=== PATIENT | female | born 1960 | race African-American/Black ===

== ENCOUNTER 2021-08-06 04:18 | Inpatient (IN) | payer OTHER ==
[2021-08-06] MEDS ORDERED: methylPREDNISolone NA SUCC 125 MG/2 ML VIAL IVPUSH ONE (04:19)
[2021-08-06] MEDS ORDERED: methylPREDNISolone NA SUCC 125 MG/2 ML VIAL ONE (04:41)
[2021-08-06] MEDS ORDERED: ALBUTEROL SO4 2.5/IPRATROPIUM 0.5 INH SOL 3 ML VIAL.NEB. NEB ONE ×3 (04:43→15:44)
[2021-08-06] MEDS: ALBUTEROL SO4 2.5/IPRATROPIUM 0.5 INH SOL 3 ML VIAL.NEB. NEB SCH ×5 (04:50→20:39)
[2021-08-06 05:09] LABS: BASO % 0.5 % (0-2.0); EOS % 2.7 % (0-4.5); HEMATOCRIT 35.5 % (32.4-45.2); HEMOGLOBIN 11.9 GM/dL (10.7-15.3); LYMPH % 49.8 % (8-40); MCH 27.2 pg (25.7-33.7); MCHC 33.5 g/dl (32.0-36.0); MEAN CELL VOLUME 81.3 fl (80-96); MEAN PLT VOLUME 9.3 fl (7.5-11.1); MONO % 5.2 % (3.8-10.2); NEUT % 41.8 % (42.8-82.8); PLATELET COUNT 331 10^3/uL (134-434); RBC 4.36 M/mm3 (3.60-5.2); RDW 15.8 % (11.6-15.6); WHITE BLOOD COUNT 9.2 K/mm3 (4.0-10.0)
[2021-08-06 05:27] LABS: VENOUS BASE EXCESS 4.2 mmol/L (-2-2); VENOUS O2 SATURATION 99.5 % (70-80); VENOUS PCO2 52.9 mmHg (38-52); VENOUS PH 7.379 (7.310-7.410)
[2021-08-06 06:50] LABS: ALBUMIN 3.6 g/dl (3.4-5.0); BILIRUBIN,TOTAL 0.2 mg/dL (0.2-1); BLOOD UREA NITROGEN 14.8 mg/dL (7-18); CALCIUM 9.7 mg/dL (8.5-10.1); CREATININE 0.9 mg/dL (0.55-1.3); TOT PROT 7.4 g/dl (6.4-8.2)
[2021-08-06 08:13] LABS: ARTERIAL BLD GAS O2 SATURATION 99.5 % (95-98); ARTERIAL BLOOD GAS BASE EXCESS -0.7 mmol/L (-2-2); ARTERIAL BLOOD GAS PO2 223.5 mmHg (80-100); ARTERIAL BLOOD GAS pH 7.371 (7.350-7.450)
[2021-08-06 08:20] LABS: ALLENS TEST POSITIVE
[2021-08-06 08:21] LABS: VENT MODE S/T; VENT RATE 16
[2021-08-06 08:27] LABS: EPI CELLS 4 /uL (0-25.1); HYALINE CASTS 0 /uL (0-3.1); URINE APPEARANCE CLEAR; URINE BACTERIA 26 /uL (0-1359); URINE BILIRUBIN NEGATIVE (NEGATIVE); URINE COLOR YELLOW; URINE GLUCOSE (UA) NEGATIVE (NEGATIVE); URINE KETONE NEGATIVE (NEGATIVE); URINE LEUK ESTERASE NEGATIVE (NEGATIVE); URINE NITRITE NEGATIVE (NEGATIVE); URINE PROTEIN 2+ (NEGATIVE); URINE RBC 1 /uL (0-23.9); URINE UROBILINOGEN 0.2 mg/dL (0.2-1.0); URINE WBC 4 /uL (0-25.8)
[2021-08-06] MEDS ORDERED: methylPREDNISolone NA SUCC 40 MG/1 ML VIAL ONE ×2 (09:12→15:45)
[2021-08-06] MEDS ORDERED: ENOXAPARIN NA (PORCINE) 40 MG/0.4 ML DISP.SYRIN SQ ONE (09:13)
[2021-08-06] MEDS: methylPREDNISolone NA SUCC 40 MG/1 ML VIAL IVPUSH SCH ×3 (09:27→22:04)
[2021-08-06] MEDS: ENOXAPARIN NA (PORCINE) 40 MG/0.4 ML DISP.SYRIN SQ SCH (09:27)
[2021-08-06 10:03] LABS: METHADONE, UR NEGATIVE (NEGATIVE)
[2021-08-06 10:04] LABS: URINE AMPHETAMINES NEGATIVE (NEGATIVE)
[2021-08-06 10:06] LABS: OPIATES, URI NEGATIVE (NEGATIVE); PHENCYCLIDINE,URINE NEGATIVE (NEGATIVE); URINE BARBITURATES NEGATIVE (NEGATIVE); URINE BENZODIAZEPINES NEGATIVE (NEGATIVE)
[2021-08-06 10:11] LABS: COCAINE, UR NEGATIVE (NEGATIVE)
[2021-08-06] MEDS: INSULIN SLIDING SCALE (NOVOLOG) 1 VIAL SQ SCH ×3 (11:04→22:05)
[2021-08-06] MEDS ORDERED: amLODIPine BESYLATE 10 MG TABLET (FP) PO SCH (12:00)
[2021-08-06] MEDS: LOSARTAN POTASSIUM 50 MG TABLET PO SCH (12:55)
[2021-08-06] MEDS: CARVEDILOL 6.25 MG TABLET (FP) PO SCH ×2 (12:55→22:04)
[2021-08-06] MEDS ORDERED: LOSARTAN POTASSIUM 50 MG TABLET ONE (13:01)
[2021-08-06] MEDS ORDERED: CARVEDILOL 6.25 MG TABLET (FP) ONE (13:01)
[2021-08-06] MEDS: INSULIN (NOVOLOG) ASPART 100 UNITS/ML 10ML VIAL SQ SCH (17:25)
[2021-08-06 20:03] VITALS: BMI 33.4
[2021-08-06] MEDS ORDERED: LOSARTAN POTASSIUM 25 MG TABLET PO ONE (21:57)
[2021-08-06] MEDS: ATORVASTATIN CA 40 MG TABLET (FP) PO SCH (22:04)
[2021-08-07] MEDS: ALBUTEROL SO4 2.5/IPRATROPIUM 0.5 INH SOL 3 ML VIAL.NEB. NEB SCH ×6 (00:34→20:15)
[2021-08-07] MEDS: methylPREDNISolone NA SUCC 40 MG/1 ML VIAL IVPUSH SCH ×2 (03:19→10:12)
[2021-08-07] MEDS: INSULIN SLIDING SCALE (NOVOLOG) 1 VIAL SQ SCH ×5 (06:18→21:56)
[2021-08-07] MEDS: INSULIN (NOVOLOG) ASPART 100 UNITS/ML 10ML VIAL SQ SCH ×3 (07:00→17:43)
[2021-08-07 07:05] LABS: BASO % 0.1 % (0-2.0); HEMATOCRIT 33.3 % (32.4-45.2); HEMOGLOBIN 10.8 GM/dL (10.7-15.3); LYMPH % 8.5 % (8-40); MCH 26.6 pg (25.7-33.7); MCHC 32.4 g/dl (32.0-36.0); MEAN CELL VOLUME 82.2 fl (80-96); MEAN PLT VOLUME 9.8 fl (7.5-11.1); NEUT % 89.4 % (42.8-82.8); PLATELET COUNT 310 10^3/uL (134-434); RBC 4.05 M/mm3 (3.60-5.2); RDW 15.9 % (11.6-15.6); WHITE BLOOD COUNT 18.3 K/mm3 (4.0-10.0)
[2021-08-07 07:14] LABS: INR 1.03 (0.83-1.09); PROTHROMBIN TIME (PATIENT) 11.8 SEC (9.7-13.0)
[2021-08-07 07:17] LABS: ACTIVATED PTT 37.3 SECONDS (25.2-36.5)
[2021-08-07 07:18] LABS: BLOOD UREA NITROGEN 19.6 mg/dL (7-18); CALCIUM 9.8 mg/dL (8.5-10.1)
[2021-08-07 07:19] LABS: MAGNESIUM 2.2 mg/dL (1.8-2.4)
[2021-08-07 07:20] LABS: ALBUMIN 2.9 g/dl (3.4-5.0)
[2021-08-07 07:22] LABS: CREATININE 0.9 mg/dL (0.55-1.3); PHOSPHOROUS 3.7 mg/dL (2.5-4.9)
[2021-08-07 07:23] LABS: TOT PROT 6.4 g/dl (6.4-8.2)
[2021-08-07 07:37] LABS: BILIRUBIN,TOTAL 0.2 mg/dL (0.2-1)
[2021-08-07] MEDS ORDERED: INSULIN (LEVEMIR) 100 UNITS/ML UNITS SQ ONE (08:10)
[2021-08-07] MEDS ORDERED: LOSARTAN POTASSIUM 50 MG TABLET PO SCH (10:00)
[2021-08-07] MEDS: CARVEDILOL 6.25 MG TABLET (FP) PO SCH ×2 (10:12→21:50)
[2021-08-07] MEDS: ENOXAPARIN NA (PORCINE) 40 MG/0.4 ML DISP.SYRIN SQ SCH (10:12)
[2021-08-07] MEDS: LOSARTAN POTASSIUM 50 MG TABLET PO SCH (10:13)
[2021-08-07] MEDS: NIFEdipine E.R 60 MG TABLET PO SCH (10:13)
[2021-08-07] MEDS ORDERED: ALBUTEROL SO4 HFA INHALER IH PRN (12:45)
[2021-08-07] MEDS ORDERED: DOXAZOSIN MESYLATE 4 MG TABLET ONE (21:05)
[2021-08-07] MEDS: FAMOTIDINE 20 MG TABLET PO SCH (21:50)
[2021-08-07] MEDS: ATORVASTATIN CA 40 MG TABLET (FP) PO SCH (21:50)
[2021-08-07] MEDS: PREGABALIN 100 MG CAPSULE PO SCH (21:50)
[2021-08-07] MEDS: INSULIN (LEVEMIR) 100 UNITS/ML UNITS SQ SCH (21:50)
[2021-08-07] MEDS ORDERED: DOXAZOSIN MESYLATE 8 MG TABLET PO SCH (22:00)
[2021-08-07] MEDS ORDERED: BUDESONIDE/FORMETEROL FUMARATE 160/4.5 mcg INHALER IH SCH (22:00)
[2021-08-07] MEDS: BUDESONIDE/FORMETEROL FUMARATE 160/4.5 mcg INHALER IH SCH (22:13)
[2021-08-08] MEDS: methylPREDNISolone NA SUCC 40 MG/1 ML VIAL IVPUSH SCH ×4 (02:50→18:10)
[2021-08-08] MEDS: ALBUTEROL SO4 2.5/IPRATROPIUM 0.5 INH SOL 3 ML VIAL.NEB. NEB SCH ×6 (03:00→20:57)
[2021-08-08] MEDS: PREGABALIN 100 MG CAPSULE PO SCH ×4 (06:42→21:38)
[2021-08-08] MEDS: INSULIN (LEVEMIR) 100 UNITS/ML UNITS SQ SCH ×2 (06:43→21:50)
[2021-08-08] MEDS: INSULIN SLIDING SCALE (NOVOLOG) 1 VIAL SQ SCH ×4 (06:44→21:50)
[2021-08-08] MEDS: INSULIN (NOVOLOG) ASPART 100 UNITS/ML 10ML VIAL SQ SCH ×3 (06:45→16:46)
[2021-08-08 07:16] LABS: BASO % 0.1 % (0-2.0); HEMATOCRIT 31.3 % (32.4-45.2); HEMOGLOBIN 10.2 GM/dL (10.7-15.3); LYMPH % 8.4 % (8-40); MCH 26.9 pg (25.7-33.7); MCHC 32.6 g/dl (32.0-36.0); MEAN CELL VOLUME 82.3 fl (80-96); MEAN PLT VOLUME 9.2 fl (7.5-11.1); MONO % 2.9 % (3.8-10.2); NEUT % 88.6 % (42.8-82.8); PLATELET COUNT 296 10^3/uL (134-434); RDW 16.2 % (11.6-15.6); WHITE BLOOD COUNT 15.9 K/mm3 (4.0-10.0)
[2021-08-08 07:29] LABS: BLOOD UREA NITROGEN 21.9 mg/dL (7-18); CALCIUM 9.5 mg/dL (8.5-10.1)
[2021-08-08 07:33] LABS: CREATININE 0.7 mg/dL (0.55-1.3)
[2021-08-08] MEDS: DOXAZOSIN MESYLATE 4 MG TABLET PO SCH ×2 (09:14→21:38)
[2021-08-08] MEDS: CARVEDILOL 6.25 MG TABLET (FP) PO SCH ×2 (09:15→21:38)
[2021-08-08] MEDS: BUDESONIDE/FORMETEROL FUMARATE 160/4.5 mcg INHALER IH SCH ×2 (09:15→21:38)
[2021-08-08] MEDS: FAMOTIDINE 20 MG TABLET PO SCH ×2 (09:15→21:38)
[2021-08-08] MEDS: ENOXAPARIN NA (PORCINE) 40 MG/0.4 ML DISP.SYRIN SQ SCH (09:15)
[2021-08-08] MEDS: LOSARTAN POTASSIUM 50 MG TABLET PO SCH (09:15)
[2021-08-08] MEDS: NIFEdipine E.R 60 MG TABLET PO SCH (09:15)
[2021-08-08] MEDS: ATORVASTATIN CA 40 MG TABLET (FP) PO SCH (21:38)
[2021-08-09] MEDS: ALBUTEROL SO4 2.5/IPRATROPIUM 0.5 INH SOL 3 ML VIAL.NEB. NEB SCH ×5 (00:05→15:45)
[2021-08-09] MEDS: methylPREDNISolone NA SUCC 40 MG/1 ML VIAL IVPUSH SCH ×3 (01:59→16:59)
[2021-08-09] MEDS: PREGABALIN 100 MG CAPSULE PO SCH ×2 (06:57→14:26)
[2021-08-09] MEDS: INSULIN SLIDING SCALE (NOVOLOG) 1 VIAL SQ SCH ×3 (06:58→17:08)
[2021-08-09] MEDS: INSULIN (LEVEMIR) 100 UNITS/ML UNITS SQ SCH (06:58)
[2021-08-09] MEDS: INSULIN (NOVOLOG) ASPART 100 UNITS/ML 10ML VIAL SQ SCH ×3 (06:59→17:09)
[2021-08-09 08:03] LABS: BASO % 0.1 % (0-2.0); HEMATOCRIT 32.8 % (32.4-45.2); HEMOGLOBIN 10.6 GM/dL (10.7-15.3); LYMPH % 12.7 % (8-40); MCH 26.4 pg (25.7-33.7); MCHC 32.4 g/dl (32.0-36.0); MEAN CELL VOLUME 81.6 fl (80-96); MEAN PLT VOLUME 9.7 fl (7.5-11.1); MONO % 4.1 % (3.8-10.2); NEUT % 83.1 % (42.8-82.8); PLATELET COUNT 310 10^3/uL (134-434); RBC 4.02 M/mm3 (3.60-5.2); WHITE BLOOD COUNT 14.5 K/mm3 (4.0-10.0)
[2021-08-09 08:30] LABS: MAGNESIUM 2.5 mg/dL (1.8-2.4)
[2021-08-09 08:31] LABS: CALCIUM 9.5 mg/dL (8.5-10.1)
[2021-08-09 08:33] LABS: ALBUMIN 2.9 g/dl (3.4-5.0); BILIRUBIN,TOTAL 0.3 mg/dL (0.2-1); PHOSPHOROUS 3.7 mg/dL (2.5-4.9)
[2021-08-09 08:34] LABS: CREATININE 0.8 mg/dL (0.55-1.3)
[2021-08-09 08:35] LABS: TOT PROT 6.3 g/dl (6.4-8.2)
[2021-08-09] MEDS ORDERED: LOSARTAN POTASSIUM 50 MG TABLET PO SCH (10:00)
[2021-08-09] MEDS: FAMOTIDINE 20 MG TABLET PO SCH (10:27)
[2021-08-09] MEDS: DOXAZOSIN MESYLATE 4 MG TABLET PO SCH (10:27)
[2021-08-09] MEDS: NIFEdipine E.R 60 MG TABLET PO SCH (10:28)
[2021-08-09] MEDS: CARVEDILOL 6.25 MG TABLET (FP) PO SCH (10:28)
[2021-08-09] MEDS: BUDESONIDE/FORMETEROL FUMARATE 160/4.5 mcg INHALER IH SCH (10:39)
[2021-08-09] MEDS: ENOXAPARIN NA (PORCINE) 40 MG/0.4 ML DISP.SYRIN SQ SCH (10:40)
[2021-08-09] MEDS ORDERED: SODIUM CHLORIDE NASAL SPRAY 44 ML BOTTLE NS PRN (11:04)
[2021-08-09] MEDS: hydrALAZINE HCL 25 MG TABLET (FP) PO SCH ×2 (12:18→14:26)
[2021-08-09] MEDS ORDERED: hydrALAZINE HCL 25 MG TABLET (FP) PO SCH ×2 (14:00→14:42)
[2021-08-09 19:07] VITALS: BP 173/85; PULSE 71; TEMP 98.1
== END 2021-08-09 19:27 | disposition home or self-care (01) | DRG 140 ==
LOC: JER 04:18 → JERBED 06:58 → J4W 18:33
PROVIDERS: ADMIT Internal Medicine; ATTEND Internal Medicine
DX: J44.1 Chronic obstructive pulmonary disease with (acute) exacerbation (principal); J96.01 Acute respiratory failure with hypoxia; I25.10 Atherosclerotic heart disease of native coronary artery without angina pectoris; E78.5 Hyperlipidemia, unspecified; I25.2 Old myocardial infarction; I11.0 Hypertensive heart disease with heart failure; I50.32 Chronic diastolic (congestive) heart failure; E11.65 Type 2 diabetes mellitus with hyperglycemia; J45.901 Unspecified asthma with (acute) exacerbation; D72.829 Elevated white blood cell count, unspecified; G47.33 Obstructive sleep apnea (adult) (pediatric); R94.6 Abnormal results of thyroid function studies; Z86.73 Personal history of transient ischemic attack (TIA), and cerebral infarction without residual deficits
CPT/HCPCS: 0241U-QW; 36415; 36600; 71045-TC-FY; 80048; 80053; 80061; 80307; 81003; 82803; 82962; 83036; 83735; 83880; 84100; 84439; 84443; 84481; 84484; 85025; 85610; 85730; 87086; 93005; 93010; 94640; 94660; 94761; 99285-25